=== PATIENT | male | born 1970 | race Caucasian/White ===

== ENCOUNTER 2022-09-19 15:10 | Emergency (ER) | payer SELFPAY ==
[2022-09-19 15:21] VITALS: BP 168/118; PULSE 110; RESP 18; TEMP 37.4; O2SAT 99
--- NOTE | 2022-09-19 15:50 | ED.GENADULT ---
HPI - General Adult General Chief complaint: Upper Respiratory Infection Stated complaint: sore throat Time Seen by Provider: 09/19/22 15:50 Source: patient Mode of arrival: ambulatory Limitations: no limitations Related Data Home Medications Medication Instructions Recorded Confirmed losartan 100 mg tablet mg 09/19/22 metoprolol tartrate 100 mg tablet mg 09/19/22 09/19/22 Allergies Allergy/AdvReac Type Severity Reaction Status Date / Time codeine Allergy Unknown Unknown Verified 09/19/22 15:29 hydrochlorothiazide Allergy Unknown Hives / Verified 09/19/22 15:29 Red Face Review of Systems Review of Systems: CONSTITUTIONAL: Denies fever, chills, or sweats. EYES: Denies visual changes, redness, or discharge. ENT: Denies rhinorrhea, congestion, sore throat, or otalgia. CARDIOVASCULAR: Denies chest pain, palpitations, or edema. RESPIRATORY: Denies cough or dyspnea. GASTROINTESTINAL: Denies abdominal pain, nausea, vomiting, or diarrhea. GENITOURINARY: Denies dysuria or hematuria. SKIN: Denies rash or itching. MUSCULOSKELETAL: Denies back pain, joint pain, or myalgia. NEUROLOGIC: Denies headache, numbness, or weakness. PSYCHIATRIC: Denies anxiety or depression. [facility]LY [facility] Past Medical History Medical History Hypertension Surgical History Surgical History History of orthopedic surgery Right knee Comments At the time of my signature I agree with nursing past medical history, surgical, social, and family history. There is no relevant family history pertinent to the presenting complaint. Exam Narrative: GENERAL: Well-appearing, well-nourished, and in no acute distress. HEAD: Normocephalic, atraumatic. EYES: PERRLA and EOMI. ENT: Nares clear, no rhinorrhea or epistaxis. Mucous membranes moist. NECK: Supple. No lymphadenopathy CHEST: Clear to auscultation. No respiratory distress. HEART: Regular rate and rhythm. No murmur heard. Normal peripheral pulses. ABDOMEN: Soft, nontender, nondistended, normal active bowel sounds. EXTREMITIES: Normal range of motion. No edema. SKIN: Warm, dry, no rash. NEURO: No focal deficits. Alert and oriented x3. Course Course Level of Care: Express Care Visit Reevaluation(s) Reevaluation #1: Reevaluated patient after swabs have resulted. Discussed with patient that all swabs are negative. Discussed with patient that this is most likely a sinusitis or some type of virus that is causing issues. Discussed with patient we will discharge him home with a small course of steroids to help the inflammation, drainage and swelling as well as a daily antihistamine and nasal steroid. Discussed with patient he can use warm salt water gargles to the back of the throat as well as hot tea with honey to help with inflammation and would recommend a warm washcloth or warm heating pad to the glands to help with the pain. Patient verbalized understanding denies any other questions or concerns at this time. Date: 09/19/22 Time: 16:54 Vital Signs Vital signs: Vital Signs Temperature 37.4 C 09/19/22 15:21 Pulse Rate 110 H 09/19/22 15:21 Respiratory Rate 18 09/19/22 15:21 Blood Pressure 168/118 H 09/19/22 15:21 Pulse Oximetry 99 09/19/22 15:21 Oxygen Delivery Room Air 09/19/22 15:21 Temperature 37.4 C 09/19/22 15:21 Pulse Rate 110 H 09/19/22 15:21 Respiratory Rate 18 09/19/22 15:21 Blood Pressure 168/118 H 09/19/22 15:21 Pulse Oximetry 99 09/19/22 15:21 Oxygen Delivery Room Air 09/19/22 15:21 Vital signs reviewed The patient has been informed that they may have pre-hypertension or Hypertension based on a BP reading in the department. I recommend that the patient call the primary care provider listed on their discharge instructions or a physician of their choice this week to arrange follow up for further evaluation of possible pre-hypertension or Hyperte
== END 2022-09-19 16:54 | disposition home or self-care (01) ==
PROVIDERS: Emergency Provider Nurse Practitioner Family; PCP Internal Medicine
DX: J02.9 Acute pharyngitis, unspecified (principal); J06.9 Acute upper respiratory infection, unspecified; Z20.822 Contact with and (suspected) exposure to COVID-19; I10 Essential (primary) hypertension
CPT/HCPCS: 87081; 87426; 87804; 87880; 99213; C9803; G0463